=== PATIENT | male | born 1995 | race Caucasian/White ===

== ENCOUNTER 2017-09-30 08:14 | Emergency (ER) | payer SELFPAY ==
[~2017-09-30] VITALS: Ht 172.7 cm; Wt 65.0 kg
[~2017-09-30 08:14] MED LIST: BENA25TA8 PO; CLIN1CAP5 PO
[2017-09-30 08:15] VITALS: BP 158/82; PULSE 86; RESP 18; TEMP 99; O2SAT 98
[2017-09-30] MEDS ORDERED: IBUPROFEN 600 MG TAB PO ONE (09:15)
--- NOTE | 2017-09-30 09:21 | PD ---
HPI Chief Complaint: Wound/Suture/Staple Re-Check Time Seen by Provider: 09:08 Travel History International Travel<30 days: No Contact w/Intl Traveler<30days: No Traveled to known affect area: No History of Present Illness HPI Patient is a 21-year-old male presents to emergency room for evaluation of left hand digit #2. Patient reports that he was seen at [facility] last night after he suffered a laceration/finger fx to his left hand digit #2. Patient was discharged last night with instructions to follow-up with the hand surgeon and was also discharged with Keflex. Patient reports that his finger was splinted, reports that he was told that if his finger feels swollen, he should return to the emergency for evaluation. Patient reports that his finger has felt swollen since he left the emergency room last night, patient is here for reevaluation of his left hand #2 finger injury. Patient denies any fevers or chills, denies any new traumas. Patient here for wound check PFSH Past Medical History Medical History: Denies Significant Hx Diminished Hearing: No Hypertension: Yes Past Surgical History Surgical History: No Previous Surgery Social History Alcohol Use: Yes (OCCASIONALLY) Tobacco Use: No Substance Use: No Allergies-Medications (Allergen,Severity, Reaction): Coded Allergies: willow (Unverified Allergy, Severe, Respiratory Failure, 07/15/17) Reported Meds & Prescriptions Reported Meds & Active Scripts Active Clindamycin Hcl (Clindamycin HCl) 150 Mg Cap 450 Mg PO Q6H 10 Days Reported Benadryl 25 mg tab (Diphenhydramine HCl) 25 Mg Tab 25 Mg PO Q6H Review of Systems General / Constitutional: No: Fever Eyes: No: Visual changes HENT: No: Headaches Cardiovascular: No: Chest Pain or Discomfort Respiratory: No: Shortness of Breath Gastrointestinal: No: Abdominal Pain Genitourinary: No: Dysuria Musculoskeletal: No: Pain Skin: No Rash Neurologic: No: Weakness Psychiatric: No: Depression Endocrine: No: Polydipsia Hematologic/Lymphatic: No: Easy Bruising Physical Exam Narrative GENERAL: Well-nourished, well-developed patient. SKIN: Focused skin assessment warm/dry. HEAD: Normocephalic. EYES: No scleral icterus. No injection or drainage. NECK: Supple, trachea midline. No JVD or lymphadenopathy. CARDIOVASCULAR: Regular rate and rhythm without murmurs, gallops, or rubs. RESPIRATORY: Breath sounds equal bilaterally. No accessory muscle use. GASTROINTESTINAL: Abdomen soft, non-tender, nondistended. MUSCULOSKELETAL: No cyanosis, or edema. Dressing removed from left hand digit # 2 - sutures in place, no signs of flexorteno synovitis, there is no erythema or cellulitis from area, pulses intact, neurovascularly intact. BACK: Nontender without obvious deformity. No CVA tenderness. Data Data Last Documented VS Vital Signs Date Time Temp Pulse Resp B/P (MAP) Pulse Ox O2 Delivery O2 Flow Rate FiO2 09/30/17 08:15 99.0 86 18 158/82 (107) 98 Room Air MDM Medical Decision Making Medical Screen Exam Complete: Yes Emergency Medical Condition: Yes Medical Record Reviewed: Yes Interpretation(s) Vital Signs Date Time Temp Pulse Resp B/P (MAP) Pulse Ox O2 Delivery O2 Flow Rate FiO2 09/30/17 08:15 99.0 86 18 158/82 (107) 98 Room Air Differential Diagnosis Wound check Narrative Course Dressings removed, spint was removed, patient with no signs of infection or flexor tenosynovitis. Discussed with patient need to ice his finger, he will continue taking Keflex as antibiotic. Patient at this time with no signs of infection. He'll follow up with hand surgeon and will return to the emergency room as needed. A splint and dressing was replaced to left digit #2 Diagnosis Primary Impression: Encounter for wound re-check Referrals: Conchita Méndez MD Patient Instructions: General Instructions Additional Instructions: Please take all antibiotics as prescribed Please follow-up with hand surgeon as soon as possible Return to the emergency room he develop any fever or chills or any signs of infection. Return to the emergency room if he developed increased swelling or pain Please place ice to your injured finger. Please follow-up with your primary care doctor in 2-3 days Disposition: DISCHARGE HOME Condition: Stable FortinoNaty Sep 30, 2017 09:21
== END 2017-09-30 09:53 | disposition home or self-care (01) ==
LOC: NEPE 08:14
DX: S62.601A Fracture of unspecified phalanx of left index finger, initial encounter for closed fracture (principal)
CPT/HCPCS: 29130

== ENCOUNTER 2017-10-07 22:51 | Emergency (ER) | payer SELFPAY ==
[~2017-10-07] VITALS: Ht 177.8 cm; Wt 63.0 kg
[2017-10-07 22:53] VITALS: BP 132/85; PULSE 74; RESP 16; TEMP 98.6; O2SAT 99
--- NOTE | 2017-10-07 23:33 | PD ---
HPI Chief Complaint: Wound/Suture/Staple Re-Check Time Seen by Provider: 23:29 Travel History International Travel<30 days: No Contact w/Intl Traveler<30days: No Traveled to known affect area: No History of Present Illness HPI Patient comes in for evaluation of wound rechecked his left hand second digit. Patient states he had sutures placed on September 29 has not followed up with hand surgeon yet. Patient reports that he noticed it starting to either have a dark scab on it or becoming necrotic few days ago. Patient states that 3 days ago refills are less sensation at the tip of his finger. Patient denies doing anything for this. Denies anything making it better or worse. PFSH Past Medical History Medical History: Denies Significant Hx Diminished Hearing: No Hypertension: Yes Tetanus Vaccination: < 5 Years Influenza Vaccination: No Past Surgical History Surgical History: No Previous Surgery Social History Alcohol Use: Yes (OCCASIONALLY) Tobacco Use: No Substance Use: No Allergies-Medications (Allergen,Severity, Reaction): Coded Allergies: willow (Unverified Allergy, Severe, Respiratory Failure, 10/07/17) Reported Meds & Prescriptions Reported Meds & Active Scripts Active Clindamycin Hcl (Clindamycin HCl) 150 Mg Cap 450 Mg PO Q6H 10 Days Reported Benadryl 25 mg tab (Diphenhydramine HCl) 25 Mg Tab 25 Mg PO Q6H Review of Systems Except as stated in HPI: all other systems reviewed are Neg Physical Exam Narrative GENERAL: Well-developed, well nourished, in no acute distress, and non-ill appearing. SKIN: Well-healing wounds noted over second digit left hand with sutures in place of dry clean intact. The small amount of serosanguineous fluid draining noted. Patient is neurovascularly intact. Capillary refills less than 2 seconds. Patient reports tenderness to palpation around the middle and distal phalanx. HEAD: Atraumatic. Normocephalic. EYES: Pupils equal and round. EOMI. No scleral icterus. No injection or drainage. ENT: No nasal bleeding or discharge. Mucous membranes pink and moist. NECK: Trachea midline. Supple. No nuclear rigidity. RESPIRATORY: No accessory muscle use. No respiratory distress. MUSCULOSKELETAL: No obvious deformities. No clubbing. No cyanosis. No edema. Full range of motion. NEUROLOGICAL: Awake and alert. No obvious cranial nerve deficits. Motor grossly within normal limits. Normal speech. PSYCHIATRIC: Appropriate mood and affect; insight and judgment normal. Data Data Last Documented VS Vital Signs Date Time Temp Pulse Resp B/P (MAP) Pulse Ox O2 Delivery O2 Flow Rate FiO2 10/08/17 01:44 10/07/17 22:53 98.6 74 16 99 Orders Orders Finger ([id number]) (10/07/17 ) Mandatory Outpatient Referral (10/08/17 01:32) Ed Discharge Order (10/08/17 01:32) Splint Or Brace Apply/Monitor (10/08/17 01:35) Wound Care (10/08/17 01:35) MDM Medical Decision Making Medical Screen Exam Complete: Yes Emergency Medical Condition: Yes Interpretation(s) Last Impressions Finger X-Ray 10/07/17 0000 Signed Impressions: Service Date/Time: Saturday, October 07, 2017 23:39 - CONCLUSION: 1. Fracture middle phalanx second digit Colin Hutson MD Differential Diagnosis Wound check in, wound recheck, suture removal, osteomyelitis, other Narrative Course Patient in no obvious distress upon re-evaluation. All pertinent Radiology result(s) discussed with patient. Discussed patient with Dr. Alarcon prior to discharge, who saw and evaluated the patient and is in agreement with plan of care and disposition. Mandatory referral was placed to hand surgery for follow-up. Any questions/concerns in reference to patient diagnosis/condition discussed and clarified prior to patient's discharge. Reinforced sheer importance of close follow up with patient's primary physician or primary care clinic. Instructed patient to return to ED immediately, if symptoms return/ worsen. Patient showed understanding of above instructions. Further instructions and recommendations were detailed in discharge paperwork. Patient ambulated without difficulty out of ED at discharge. Procedures Procedure Narrative Verbal consent was obtained. 11 sutures are removed easily without difficulty. Patient tolerated procedure well. There is no complications. Diagnosis Primary Impression: Encounter for wound re-check Additional Impression: Visit for suture removal Patient Instructions: Acute Wounds (DC), Finger Fracture (DC), General Instructions, Splint Care (ED), Stitches Removal (DC) Additional Instructions: Follow-up with hand surgeon for reevaluation. Keep wound dry and clean as possible using soap and water. Use Neosporin to promote healing. Do not soak or submerge wound. Return to the emergency department if symptoms get worse. Disposition: 01 DISCHARGE HOME Condition: Stable Kris Ornelas Oct 07, 2017 23:33
--- NOTE | 2017-10-08 00:06 | RADRPT ---
EXAM DATE/TIME: 10/07/2017 23:39 [facility] COMPARISON: No previous studies available for comparison. INDICATIONS : Cut 2nd digit at distal phalanx using table saw. MEDICAL HISTORY : None. SURGICAL HISTORY : None. ENCOUNTER: Initial ACUITY: 1 day PAIN SCORE: 0/10 LOCATION: Left 2nd digit FINDINGS: There is a fracture through the middle digit of the second digit involving the volar cortex and medul amado cavity. Joint spaces are maintained. CONCLUSION: 1. Fracture middle phalanx second digit Colin Hutson MD on October 08, 2017 at 0:04 Board Certified Radiologist. This report was verified electronically.
== END 2017-10-08 01:45 | disposition home or self-care (01) ==
LOC: NEPK 22:51
DX: S62.623D Displaced fracture of middle phalanx of left middle finger, subsequent encounter for fracture with routine healing (principal); I10 Essential (primary) hypertension; Z79.899 Other long term (current) drug therapy; Z48.02 Encounter for removal of sutures; X58.XXXD Exposure to other specified factors, subsequent encounter
CPT/HCPCS: 29130; 73140